=== PATIENT | female | born 1950 | race Caucasian/White ===

== ENCOUNTER 2016-09-18 13:41 | Inpatient (IN) | payer MEDICARE, OTHER ==
[~2016-09-18] VITALS: Ht 170.2 cm; Wt 124.0 kg
[2016-09-19] MEDS ORDERED: COQ-100C2 PO (09:43)
[2016-09-19] MEDS ORDERED: APIX5TAB PO (09:43)
[2016-09-19] MEDS ORDERED: COLLCAP PO (09:43)
[2016-09-19] MEDS ORDERED: MULT400T PO (09:43)
[2016-09-19] MEDS ORDERED: DIOV80TA2 PO (09:43)
[2016-09-19] MEDS ORDERED: BIOT50005 PO (09:43)
[2016-10-06] MEDS ORDERED: ceFAZolin INJ 1,000 MG VIAL ONE ×2 (06:38→08:19)
[2016-10-06] MEDS ORDERED: SODIUM CHLOR 0.9% 250 ML INJ 250 ML ONE (06:38)
[2016-10-06] MEDS ORDERED: DEXAMETHASONE SOD PHOS 20 MG/5 ML VIAL ONE (06:38)
[2016-10-06] MEDS ORDERED: SODIUM CHLORIDE 0.9% INJ 100 ML ONE ×2 (06:39→08:20)
[2016-10-06] MEDS ORDERED: VANCOMYCIN HCL 1000 MG VIAL ONE (06:39)
[2016-10-06 06:41] VITALS: BP 157/74; PULSE 57; RESP 18; TEMP 97.9; O2SAT 97
[2016-10-06] MEDS ORDERED: LACTATED RINGER'S 1000 ML IV SCH (06:45)
[2016-10-06] MEDS ORDERED: METOPROLOL TARTRATE 25 MG TAB PO PRN (06:45)
[2016-10-06] MEDS ORDERED: VANCOMYCIN 1000 MG/NS 250 ML (for <70 kg) IV SCH ×2 (06:45)
[2016-10-06] MEDS ORDERED: POVIDONE IODINE 7.5% SCRUB 118 ML BOTTLE TOP SCH (06:45)
[2016-10-06] MEDS ORDERED: ceFAZolin 2 GM PREMIX 50 ML IV SCH (06:45)
[2016-10-06] MEDS ORDERED: INSULIN HUMAN REGULAR 1,000 UNITS/10 ML VIAL SQ PRN (06:45)
[2016-10-06] MEDS ORDERED: SODIUM CHLORID 0.9% 500 ML IV SCH (06:45)
[2016-10-06] MEDS ORDERED: GENTAMICIN SULFATE 80 MG/2 ML VIAL ONE (06:53)
[2016-10-06] MEDS: CHLORHEXIDINE GLUCONATE 4% SOLN 120 ML BTL TOP SCH (06:54)
[2016-10-06] MEDS ORDERED: DEXAMETHASONE SOD PHOS 20 MG/5 ML VIAL IV SCH (07:00)
[2016-10-06] MEDS ORDERED: HYDR-3288 PO (07:08)
[2016-10-06] MEDS ORDERED: APIX2.5T PO (07:08)
[2016-10-06] MEDS ORDERED: MAGNESIUM HYDROXIDE SUSP 30 ML CUP PO PRN (07:15)
[2016-10-06] MEDS ORDERED: Post-op Orders (for Pharmacy) MISC XX ONE (07:15)
[2016-10-06] MEDS ORDERED: BISACODYL 10 MG SUPP PR PRN (07:15)
[2016-10-06] MEDS ORDERED: ONDANSETRON HCL 4 MG/2 ML VIAL IVP PRN (07:15)
[2016-10-06] MEDS ORDERED: NALOXONE HCL 0.4 MG/ML AMP IV PRN (07:15)
[2016-10-06] MEDS ORDERED: diphenhydrAMINE HCL 50 MG/ML VIAL IV PRN (07:15)
[2016-10-06] MEDS ORDERED: MORPHINE SULFATE 4 MG/ML INJ IV PUSH PRN (07:15)
[2016-10-06] MEDS ORDERED: ALUMINUM/MAGNESIUM/SIMETH 30 ML CUP PO PRN (07:15)
[2016-10-06] MEDS ORDERED: ZOLPIDEM TARTRATE 5 MG TAB PO PRN (07:15)
[2016-10-06] MEDS ORDERED: MIDAZOLAM HCL 2 MG/2 ML VIAL ONE ×3 (08:03→11:27)
[2016-10-06] MEDS ORDERED: FAMOTIDINE 20 MG/2 ML VIAL ONE (08:25)
[2016-10-06] MEDS ORDERED: TRANEXAMIC ACID IV SCH (08:30)
[2016-10-06] MEDS ORDERED: ROPIVACAINE PERI-ARTICULAR INJECTION. PERIART SCH ×5 (08:30)
[2016-10-06] MEDS ORDERED: EXPAREL PERI-ARTICULAR INJECTION (TOTAL VOL. 60 ML) P-ARTICULR SCH ×2 (08:30)
[2016-10-06] MEDS ORDERED: SODIUM CHLORIDE 0.9% IV SCH (08:30)
[2016-10-06] MEDS ORDERED: TRANEXAMIC PERI-ARTICULAR 3,000 MG/NS 100 ML P-ARTICULR SCH ×2 (08:30)
[2016-10-06] MEDS ORDERED: PILL SPLITTER OTHER PRN (08:45)
[2016-10-06] MEDS ORDERED: SODIUM CHLORIDE 0.9% FLUSH 10 ML FLUSH IV FLUSH PRN (08:45)
[2016-10-06] MEDS: DRONEDARONE 400 MG TAB PO SCH ×2 (09:00→18:37)
[2016-10-06] MEDS ORDERED: NON-FORMULARY DRUG (Valsartan-Hydrochlorothiazide (Diovan Hct) 1 TAB) PO SCH (09:00)
[2016-10-06] MEDS: VALSARTAN 80 MG TAB PO SCH (09:00)
[2016-10-06] MEDS: HYDROCHLOROTHIAZIDE 12.5 MG CAP PO SCH (09:00)
[2016-10-06] MEDS: ASCORBIC ACID 500 MG TAB PO SCH (09:00)
[2016-10-06] MEDS ORDERED: BUPIVACAINE HCL PF 0.5% 30 ML VIAL NERV BLOCK ONE (09:23)
[2016-10-06] MEDS ORDERED: DO NOT ADM ANY ANTICOAGULANT DRUGS XX PRN (11:09)
[2016-10-06] MEDS ORDERED: *MEPERIDINE 25 MG INJ VIAL PERIprocedural Use ONLY ONE (11:21)
[2016-10-06] MEDS: SODIUM CHLOR 0.9% 1000 ML INJ 1,000 ML IV SCH ×2 (11:51→19:00)
[2016-10-06] MEDS: SODIUM CHLORIDE 0.9% FLUSH 10 ML FLUSH IV FLUSH SCH ×2 (11:51→21:00)
[2016-10-06] MEDS ORDERED: PROPOFOL 200 MG/20 ML AMP IV ONE (12:00)
--- NOTE | 2016-10-06 12:08 | RADRPT ---
EXAM DATE/TIME: 10/06/2016 11:37 [facility] COMPARISON: No previous studies available for comparison. INDICATIONS : Post op left knee surgery. MEDICAL HISTORY : None. SURGICAL HISTORY : None. ENCOUNTER: Initial ACUITY: 1 day PAIN SCORE: 5/10 LOCATION: Left knee FINDINGS: AP and lateral views of the knee following arthroplasty reveals a prosthesis in anatomic alignment. F racture is not appreciated. Surgical drain is evident CONCLUSION: Status post total knee arthroplasty. Arthur Hilton MD FACR Board Certified Radiologist. This report was verified electronically.
[2016-10-06 12:38] VITALS: BP 121/65; PULSE 64; RESP 17; TEMP 95.7; O2SAT 97
--- NOTE | 2016-10-06 13:08 | PD.CONS ---
HPI Service [facility] Hospitalists Consult Requested By Dr. Hill Reason for Consult Medical management Primary Care Physician Garrick Laguerre M.D. Diagnoses: History of Present Illness This is a 66-year-old female with past medical history of atrial fibrillation, aortic stenosis, obesity, sleep apnea, osteoarthritis. Patient was admitted for elective surgery per Dr. Hill. Patient underwent a left total knee arthroplasty. Patient has a history of atrial fibrillation, she follows up regularly with Dr. Grijalva who cleared her for surgery. She is on Eliquis, which was stopped for surgery. Also endorses history of aortic stenosis which is stable. Her last echocardiogram was in May 2016. Patient denies any chest pain, shortness of breath, no palpitations. Patient is hemodynamically stable, pain is well controlled. Hospitalist services are requested for medical management. (Erna Serrano) Review of Systems Constitutional: DENIES: Diaphoretic episodes, Fatigue, Fever, Weight gain, Weight loss, Chills, Dizziness, Change in appetite, Night Sweats Endocrine: DENIES: Abnorml menstrual pattern, Heat/cold intolerance, Polydipsia , Polyuria, Polyphagia Eyes: DENIES: Blurred vision, Diplopia, Eye inflammation, Eye pain, Vision loss , Photosensitivity, Double Vision Ears, nose, mouth, throat: DENIES: Tinnitus, Hearing loss, Vertigo, Nasal discharge, Oral lesions, Throat pain, Hoarseness, Ear Pain, Running Nose, Epistaxis, Sinus Pain, Toothache, Odynophagia Respiratory: DENIES: Apneas, Cough, Snoring, Wheezing, Hemoptysis, Sputum production, Shortness of breath Cardiovascular: DENIES: Chest pain, Palpitations, Syncope, Dyspnea on Exertion , PND, Lower Extremity Edema, Orthopnea, Claudication Gastrointestinal: DENIES: Abdominal pain, Black stools, Bloody stools, Constipation, Diarrhea, Nausea, Vomiting, Difficulty Swallowing, Anorexia Genitourinary: DENIES: Abnormal vaginal bleeding, Dysmenorrhea, Dyspareunia, Sexual dysfunction, Urinary frequency, Urinary incontinence, Urgency, Hematuria , Dysuria, Nocturia, Vaginal discharge Musculoskeletal: COMPLAINS OF: Joint pain, DENIES: Muscle aches, Stiffness, Joint Swelling, Back pain, Neck pain Integumentary: DENIES: Abnormal pigmentation, Pruritus, Rash, Nail changes, Breast masses, Breast skin changes, Nipple discharge Hematologic/lymphatic: DENIES: Bruising, Lymphadenopathy Immunologic/allergic: DENIES: Eczema, Urticaria Neurologic: DENIES: Abnormal gait, Headache, Localized weakness, Paresthesias, Seizures, Speech Problems, Tremor, Poor Balance Psychiatric: DENIES: Anxiety, Confusion, Mood changes, Depression, Hallucinations, Agitation, Suicidal Ideation, Homicidal Ideation, Delusions ( Erna Serrano) Past Family Social History Past Medical History Hypertension Hyperlipidemia Sleep apnea Atrial fibrillation Past Surgical History Tonsillectomy Left knee surgery Cardiac catheterization May 08, 2016, was found with mild aortic stenosis, no CAD Reported Medications Reported Meds & Active Scripts Active [place] (Hydrocodone-Acetaminophen) 7.5-325 mg Tab 1-2 Tab PO Q6H PRN Eliquis (Apixaban) 2.5 Mg Tab 2.5 Mg PO BID PRN Reported Collagen Plus Vitamin C (Collagen-Vitamin C) 740-125 Mg Cap 1 Cap PO DAILY Coq-10 (Coenzyme Q10 (Ubidecarenone)) 100 Mg Cap 1 Cap PO DAILY Biotin 5,000 Mcg Cap 10,000 Mcg PO DAILY Diovan Hct (Valsartan-Hydrochlorothiazide) 80-12.5 Mg Tab 1 Tab PO DAILY Multaq (Dronedarone) 400 Mg Tab 400 Mg PO BID Eliquis (Apixaban) 5 Mg Tab 5 Mg PO BID (Erna Serrano) Allergies: Coded Allergies: No Known Allergies (Verified , 10/06/16) Active Ordered Medications Inpatient Medications Acetaminophen/ Hydrocodone Bitart ([place] 7.5-325 Mg) 2 tab Q4H PRN PO PAIN SCALE 5 TO 10; Start 10/06/16 at 07:15; Status UNV Al Hydrox/Mg Hydrox/Simethicone (Mag-Al Plus Susp Liq) 30 ml Q6H PRN PO INDIGESTION; Start 10/06/16 at 07:15 Apixaban (Eliquis) 2.5 mg BID PO ; Start 10/07/16 at 08:00; Status UNV Ascorbic Acid 125 mg 125 mg DAILY PO ; Start 10/06/16 at 09:00 Bisacodyl (Dulcolax Supp) 10 mg DAILY PRN [place] CONSTIPATION; Start 10/06/16 at 07 :15; Status UNV Bupivacaine Liposome 20 ml/ Sodium Chloride 60 ml @ 120 mls/hr ONCE P-ARTICULR Last administered on 10/06/16 09:22; Start 10/06/16 at 08:30; Stop 10/06/16 at 14:30 Cefazolin Sodium/ Dextrose 50 ml @ 100 mls/hr ANALYSIS EVALUATOR IV ; Start 10/06/16 at 06:45; Stop 10/07/16 at 06:44 Cefazolin Sodium/ Sodium Chloride (Ancef Inj/NS Inj) 100 ml @ 200 mls/hr Q6H IV ; Start 10/06/16 at 13:00; Stop 10/07/16 at 01:29 Chlorhexidine Gluconate 1 applic 1 applic ONCE TOP Last administered on 06:54; Start 10/06/16 at 06:45; Stop 10/09/16 at 06:44 Dexamethasone Sodium Phosphate 10 mg 10 mg ON ARRIVAL IV Last administered on 10/06/16 06:45; Start 10/06/16 at 07:00; Stop 10/07/16 at 06:59 Diphenhydramine HCl (Benadryl Inj) 25 mg Q6H PRN IV ITCHING; Start 10/06/16 at 07:15 Docusate Sodium (Colace) 100 mg BID PO ; Start 10/07/16 at 21:00 Dronedarone (Multaq) 400 mg BID@09,18 PO ; Start 10/06/16 at 09:00 Hydrochlorothiazide (Microzide) 12.5 mg DAILY PO ; Start 10/06/16 at 09:00 Insulin Human Regular (NovoLIN R INJ) See Protocol Table ... UNSCH X1 PRN SQ SEE PROTOCOL; Start 10/06/16 at 06:45; Stop 10/07/16 at 06:44 Lactated Ringer's 1,000 ml @ 30 mls/hr Q24H IV Last administered on 10/06/16 06:40; Start 10/06/16 at 06:45; Stop 10/06/16 at 08:48; Status DC Magnesium Hydroxide (Milk Of Magnesia Liq) 30 ml DAILY PRN PO CONSTIPATION; Start 10/06/16 at 07:15; Status UNV Metoprolol Tartrate (Lopressor) 25 mg UNSCH X1 PRN PO SEE LABEL COMMENTS; Start 10/06/16 at 06:45; Stop 10/07/16 at 06:44 Miscellaneous (Pill Splitter) 1 ea UNSCH PRN OTHER SEE LABEL COMMENTS; Start at 08:45 Miscellaneous Information ALL NURSING DEPARTME... UNSCH PRN XX SEE LABEL COMMENTS; Start 10/06/16 at 11:09; Stop 10/07/16 at 11:08 Miscellaneous Information (Post-op Orders (for Pharmacy)) STAT ONCE XX ; Start 10/06/16 at 07:15; Stop 10/06/16 at 08:39; Status DC Morphine Sulfate (Morphine Inj) 3 mg Q3H PRN IV PUSH Pain >7 when off PRODUCT DEVELOPER; Start 10/06/16 at 07:15; Status UNV Multivitamins/ Minerals Therapeutic (Theragran M Tab) 1 tab BID PO ; Start 10/07 at 21:00; Stop 12/06/16 at 20:59 Naloxone HCl (Narcan Inj) 0.4 mg UNSCH PRN IV RESPIRATORY RATE LESS THAN 10; Start 10/06/16 at 07:15 Ondansetron HCl (Zofran Inj) 4 mg Q6H PRN IVP NAUSEA OR VOMITING; Start at 07:15 Povidone Iodine (Betadine 7.5% Scrub) 1 applic ONCE TOP ; Start 10/06/16 at 06: 45; Stop 10/09/16 at 06:44 Ropivacaine/ Ketorolac Tromethamine/ Epinephrine HCl/ Clonidine/Sodium Chloride (Naropin 0.5% Pf Inj/Toradol Inj/ Adrenalin (1:1000) Inj/ Duraclon Inj/NS Inj) 100 ml @ 200 mls/hr ONCE PERIART ; Start 10/06/16 at 08:30; Stop 10/06/16 at 14 :30 Sodium Chloride (NS 1000 ml Inj) 1,000 ml @ 100 mls/hr Q10H IV Last administered on 10/06/16t 11:51; Start 10/06/16 at 09:00 Sodium Chloride (NS 500 ml Inj) 500 ml @ 30 mls/hr [id number] IV ; Start 10/06/16 at 06:45; Stop 10/06/16 at 08:48; Status DC Sodium Chloride (NS Flush) 2 ml UNSCH PRN IV FLUSH FLUSH AFTER USING IV ACCESS ; Start 10/06/16 at 08:45 Sodium Chloride 2 ml 2 ml BID IV FLUSH Last administered on 10/06/16 11:51; Start 10/06/16 at 09:00 Tranexamic Acid 1825 mg/Sodium Chloride 118.25 ml @ 200 mls/ hr ONCE IV Last administered on 10/06/16 08:55; Start 10/06/16 at 08:30; Stop 10/06/16 at 14:30 Tranexamic Acid/ Sodium Chloride (Cyklokapron Inj/ NS Inj) 130 ml @ 260 mls/hr ONCE P-ARTICULR Last administered on 10/06/16 09:22; Start 10/06/16 at 08:30; Stop 10/06/16 at 14:30 Valsartan (Diovan) 80 mg DAILY PO ; Start 10/06/16 at 09:00 Vancomycin HCl 1000 mg/Sodium Chloride 250 ml @ 250 mls/hr ANALYSIS EVALUATOR IV Last administered on 10/06/16 06:58; Start 10/06/16 at 06:45; Stop 10/07/16 at 06:44 Zolpidem Tartrate (Ambien) 5 mg HS PRN PO SLEEP; Start 10/06/16 at 07:15 Family History Renal disease Social History Denies tobacco or illicit drug use. Occasional alcohol use (Erna Serrano ) Physical Exam Vital Signs Vital Signs Date Time Temp Pulse Resp B/P Pulse Ox O2 Delivery O2 Flow Rate FiO2 10/06/16 12:38 95.7 64 17 121/65 97 10/06/16 12:15 65 14 159/73 96 Nasal Cannula 2 10/06/16 12:00 97.4 63 14 159/73 96 Nasal Cannula 3 10/06/16 11:55 97.4 10/06/16 11:45 69 12 155/72 95 Nasal Cannula 3 10/06/16 11:30 61 13 174/82 95 Nasal Cannula 3 10/06/16 11:15 96.0 10/06/16 11:13 96.0 92 15 173/73 89 Nasal Cannula 3 10/06/16 06:41 97.9 57 18 157/74 97 Physical Exam GENERAL: This is a well-nourished, well-developed patient, in no apparent distress. SKIN: No rashes, ecchymoses or lesions. Cool and dry. HEAD: Atraumatic. Normocephalic. No temporal or scalp tenderness. EYES: Pupils equal round and reactive. Extraocular motions intact. No scleral icterus. No injection or drainage. ENT: Nose without bleeding, purulent drainage or septal hematoma. Throat without erythema, tonsillar hypertrophy or exudate. Uvula midline. Airway patent. NECK: Trachea midline. No JVD or lymphadenopathy. Supple, nontender, no meningeal signs. CARDIOVASCULAR: Regular rate and rhythm with murmur 2-3/6. No rubs, no gallops. RESPIRATORY: Clear to auscultation. Breath sounds equal bilaterally. No wheezes , rales, or rhonchi. GASTROINTESTINAL: Abdomen soft, non-tender, nondistended. No hepato-splenomegaly , or palpable masses. No guarding. MUSCULOSKELETAL: Extremities without clubbing, cyanosis. Bilat feet with trace edema, +2 pedal pulses. Left knee with bulky dressing, D/I, intact sensation, able to dorsiflex foot. No other joint tenderness, effusion, or edema noted. No calf tenderness. Negative Homans sign bilaterally. NEUROLOGICAL: Awake and alert. Cranial nerves II through XII intact. Motor and sensory grossly within normal limits. Five out of 5 muscle strength in all muscle groups. Normal speech. Laboratory Laboratory Tests Test 10/06/16 06:35 Blood Type B POSITIVE Antibody Screen NEGATIVE Blood Bank Comment (Erna Serrano) A/P Diagnosis: (1) S/P total knee arthroplasty (2) Hypertension (3) Atrial fibrillation with RVR (4) Aortic stenosis (5) Sleep apnea (6) OA (osteoarthritis) Assessment and Plan Thank you for this consultation, we will assist with medical management 66-year-old female, history of OA, obesity, has failed non operative management. Status post left total knee arthroplasty 10/06 -Continue with postop ortho care -Eliquis will be continued for DVT prophylaxis -Pain management -Physical therapy -Wound care -Bowel regimen Aortic stenosis, denies any chest pain, shortness of breath. Stable. 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 Continue with home medications History of A. fib, paroxysmal. Stable. Continuous telemetry monitoring -Continue with multaq -continue Eliquis Sleep apnea stable Continue use equipment from home Hypertension, stable Continue with home medications Continue with Eliquis for DVT prophylaxis Labs in the morning Plan of care has been discussed with the patient, attending and registered nurse. Further management of the patient will be dependent on the hospital course This patient was seen by myself and Dr. Yousif, this H&P is written on his behalf (Erna Serrano) Assessment and Plan evaluation done as above paln of chandu fernandez in detail agree with above (Celia Yousif MD) Problem Qualifiers (1) S/P total knee arthroplasty: Qualified Code: Z96.652 - Status post total left knee replacement (2) Hypertension: Qualified Code: I10 - Essential hypertension (3) Aortic stenosis: Qualified Code: I35.0 - Nonrheumatic aortic valve stenosis (4) Sleep apnea: Qualified Code: G47.30 - Sleep apnea, unspecified type (5) OA (osteoarthritis): Qualified Code: M19.90 - Osteoarthritis, unspecified osteoarthritis type, unspecified site Erna Serrano Oct 06, 2016 13:08 Celia Yousif MD Oct 09, 2016 22:19
[2016-10-06 15:00] VITALS: BP 140/63; PULSE 64; RESP 18; TEMP 96.5; O2SAT 99
[2016-10-06 20:00] VITALS: BP 100/53; PULSE 54; RESP 17; TEMP 95.4; O2SAT 94
[2016-10-06 22:17] VITALS: PULSE 66
[2016-10-07] VITALS (8 sets, daily range): BP systolic 97–128; BP diastolic 49–58; PULSE 49–62; RESP 14–18; TEMP 96–97.7; O2SAT 95–100
[2016-10-07] MEDS: CHLORHEXIDINE GLUCONATE 4% SOLN 120 ML BTL TOP SCH (00:33)
[2016-10-07] MEDS: SODIUM CHLOR 0.9% 1000 ML INJ 1,000 ML IV SCH ×2 (05:00→15:00)
[2016-10-07 06:18] LABS: HEMATOCRIT 29.1 % (35.0-46.0); MEAN CELL VOLUME 94.6 FL (80.0-100.0); MEAN CORPUSCULAR HGB CONC 33.9 % (32.0-36.0); PLATELET COUNT 153 TH/MM3 (150-450); RED BLOOD COUNT 3.07 MIL/MM3 (4.00-5.30); RED CELL DISTRIBUTION WIDTH 13.1 % (11.6-17.2); REVIEW FLAG FINAL; WHITE BLOOD COUNT 13.7 TH/MM3 (4.0-11.0)
[2016-10-07 06:46] LABS: BICARBONATE 23.4 MEQ/L (21.0-32.0); POTASSIUM 3.7 MEQ/L (3.5-5.1)
--- NOTE | 2016-10-07 08:20 | PD.ORT.PN ---
Subjective Post Op Day #: 1 Subjective Remarks pain tolerable Objective Vitals Vital Signs Date Time Temp Pulse Resp B/P Pulse Ox O2 Delivery O2 Flow Rate FiO2 10/07/16 04:00 97.5 61 16 105/58 97 10/07/16 00:00 97.7 60 17 108/56 96 10/06/16 22:17 66 10/06/16 20:00 95.4 54 17 100/53 94 10/06/16 15:00 96.5 64 18 140/63 99 10/06/16 12:38 95.7 64 17 121/65 97 10/06/16 12:15 65 14 159/73 96 Nasal Cannula 2 10/06/16 12:00 97.4 63 14 159/73 96 Nasal Cannula 3 10/06/16 11:55 97.4 10/06/16 11:45 69 12 155/72 95 Nasal Cannula 3 10/06/16 11:30 61 13 174/82 95 Nasal Cannula 3 10/06/16 11:15 96.0 10/06/16 11:13 96.0 92 15 173/73 89 Nasal Cannula 3 I/O 10/06/16 10/06/16 10/06/16 10/07/16 10/07/16 10/07/16 07:00 15:00 23:00 07:00 15:00 23:00 Intake Total 2480 ml 240 ml 720 ml Output Total 1750 ml 200 ml 1050 ml Balance 730 ml 40 ml -330 ml Intake Oral 480 ml 240 ml 720 ml Other 2000 ml Output Urine Total 650 ml 200 ml 1050 ml Estimated Blood Loss 100 ml Other 1000 ml # Voids 0 # Bowel Movements 0 0 Result Diagram: 10/07/16 0541 10/07/16 0541 Objective Remarks in bed, nad dressing c/d/i neg homans nvi Assessment & Plan Ortho Post Op Day #: 1 Problem List: Assessment and Plan s/p L TKA wbat daily dressing changes Eliquis d/c planning to snf [id number] signed rx in chart f/up dr. peoples 2 weeks Sesar Mckeon Oct 07, 2016 08:20
--- NOTE | 2016-10-07 08:21 | HHI.DCPOC ---
Discharge Care Plan Diagnosis: (1) Primary localized osteoarthrosis, lower leg Your Health Problems Are: Difficulty with ADL Goals to Promote Your Health * To prevent worsening of your condition and complications * To maintain your health at the optimal level Directions to Meet Your Goals Take your medications as prescribed Follow your dietary instruction Follow activity as directed Keep your appointments as scheduled Take your immunizations and boosters as scheduled If your symptoms worsen call your PCP, if no PCP go to Urgent Care Center or Emergency Room Smoking is Dangerous to Your Health. Avoid second hand smoke Call the 24-hour hour crisis hotline for domestic abuse at Sesar Mckeon Oct 07, 2016 08:21
[2016-10-07] MEDS ORDERED: COMMODE 3-IN-11 MIS (08:22)
[2016-10-07] MEDS ORDERED: WALKER WHEELS/F1 MIS (08:22)
[2016-10-07] MEDS ORDERED: CPMMACHINE (08:22)
[2016-10-07] MEDS: VALSARTAN 80 MG TAB PO SCH ×2 (09:00→11:21)
[2016-10-07] MEDS: SODIUM CHLORIDE 0.9% FLUSH 10 ML FLUSH IV FLUSH SCH ×2 (09:00→20:12)
[2016-10-07] MEDS: HYDROCHLOROTHIAZIDE 12.5 MG CAP PO SCH ×2 (09:00→11:20)
[2016-10-07] MEDS: DRONEDARONE 400 MG TAB PO SCH ×3 (09:00→18:01)
[2016-10-07] MEDS: APIXABAN 2.5 MG TABLET PO SCH ×2 (11:20→23:31)
[2016-10-07] MEDS: ASCORBIC ACID 500 MG TAB PO SCH (11:21)
[2016-10-07] MEDS: ACETAMINOPHEN/HYDROcodone 325 MG/7.5 MG TAB PO PRN ×3 (12:48→23:32)
--- NOTE | 2016-10-07 12:53 | HHI.PR ---
Subjective Subjective Remarks dizzy when out of bed today BP dropped to 90s, she was having BM at that time better now no cp no sob tele reviewed, SR/SB, no afib eating ok starting to feel more left knee pain Review of Systems Constitutional Constitutional Remarks 12 point ROS completed, negative except as noted above Vitals/Results Intake & Output 10/06/16 10/06/16 10/07/16 15:00 23:00 07:00 Intake Total 2480 ml 240 ml 720 ml Output Total 1750 ml 200 ml 1050 ml Balance 730 ml 40 ml -330 ml Intake Oral 480 ml 240 ml 720 ml Other 2000 ml Output Urine Total 650 ml 200 ml 1050 ml Estimated Blood Loss 100 ml Other 1000 ml # Voids 0 # Bowel Movements 0 0 Vital Signs Vital Signs Date Time Temp Pulse Resp B/P Pulse Ox O2 Delivery O2 Flow Rate FiO2 10/07/16 08:00 96.6 49 14 97/49 95 10/07/16 04:00 97.5 61 16 105/58 97 10/07/16 00:00 97.7 60 17 108/56 96 10/06/16 22:17 66 10/06/16 20:00 95.4 54 17 100/53 94 10/06/16 15:00 96.5 64 18 140/63 99 CBC/BMP: 10/07/16 0541 10/07/16 0541 Lab Results Laboratory Tests Test 10/07/16 05:41 White Blood Count 13.7 TH/MM3 Red Blood Count 3.07 MIL/MM3 Hemoglobin 9.9 GM/DL Hematocrit 29.1 % Mean Corpuscular Volume 94.6 FL Mean Corpuscular Hemoglobin 32.0 PG Mean Corpuscular Hemoglobin 33.9 % Concent Red Cell Distribution Width 13.1 % Platelet Count 153 TH/MM3 Mean Platelet Volume 9.2 FL Sodium Level 141 MEQ/L Potassium Level 3.7 MEQ/L Chloride Level 108 MEQ/L Carbon Dioxide Level 23.4 MEQ/L Anion Gap 10 MEQ/L Blood Urea Nitrogen 15 MG/DL Creatinine 0.99 MG/DL Estimat Glomerular Filtration 56 ML/MIN Rate Random Glucose 140 MG/DL Calcium Level 8.1 MG/DL Physical Exam General General Appearance: Well Developed, No Acute Distress, Comfortable, Obese Eyes Eye Exam: Pupils Equal, Pupils Reactive Ears & Nose Ears & Nose Exam: Nasal Mucosa [place] Throat Throat Exam: Oral Mucosa [place] & Moist Neck Neck Exam: Neck Supple, Trachea Midline Pulmonary Resp Exam: Clear Bilaterally Cardiology CV Exam: Regular, Good Perfusion, Murmur Gastrointestinal/Abdomen GI Exam: Soft, Non-Tender, Bowel Sounds Present, Positive Bowel Movement, Non- Distended Musculoskeletal MS Exam: Joints Intact MS Remarks Left knee/leg with dressing D/I Integumentary Skin Exam: Warm, Dry Extremeties Extremities Exam: Pedal Pulses Palpable, Trace Edema Neurologic Neuro Exam: Alert, Awake, Oriented, Speech Clear, Moving All Extremities, No Focal Deficits Psychiatric Psych Exam: Appropriate Responses VTE Prophylaxis VTE Prophylaxis Device: TEDs VTE Prophylaxis Meds: Heparin VTE Remarks Eliquis Assessment/Plan Problem List: (1) S/P total knee arthroplasty (2) OA (osteoarthritis) (3) Atrial fibrillation with RVR (4) Sleep apnea (5) Hypertension (6) Aortic stenosis Assessment/Plan 66-year-old female, history of OA, obesity, has failed non operative management. Status post left total knee arthroplasty 10/06 -Continue with postop ortho care - Continue Eliquis for DVT prophylaxis -Pain management -Physical therapy -Wound care -Bowel regimen Aortic stenosis, denies any chest pain, shortness of breath. Stable. 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 Continue with home medications Hypotensive, dizzy, ? vasovagal. HR 50s. Was having BM -BP meds held -IVF -Better now, monitor closely History of A. fib, paroxysmal. Stable. Continuous telemetry monitoring -Continue with multaq-hold if HR < 50s -continue Eliquis Sleep apnea stable Continue use equipment from home Hypertension, was actually hypotensive. -Continue IVF -Hold HCTZ and Diovan when BP < 110 Continue with Eliquis for DVT prophylaxis, pt. only on 2.5 mg po bid, will have RN ask Dr. Hill if she can go on full dose. HH stable Labs in the morning D/W RN D/W Dr. Yousif D/W pt. This patient was seen by myself and Dr. Yousif, this note is written on his behalf Problem Qualifiers (1) S/P total knee arthroplasty: Qualified Code: Z96.652 - Status post total left knee replacement (2) OA (osteoarthritis): Qualified Code: M19.90 - Osteoarthritis, unspecified osteoarthritis type, unspecified site (3) Sleep apnea: Qualified Code: G47.30 - Sleep apnea, unspecified type (4) Hypertension: Qualified Code: I10 - Essential hypertension (5) Aortic stenosis: Qualified Code: I35.0 - Nonrheumatic aortic valve stenosis Erna Serrano REAL ESTATE AGENT Oct 07, 2016 12:53
[2016-10-07] MEDS: MULTIVITAMINS/MINERALS THERAPEUTIC TAB PO SCH (20:12)
[2016-10-07] MEDS: DOCUSATE SODIUM 100 MG CAP PO SCH (20:12)
[2016-10-08] VITALS (7 sets, daily range): BP systolic 106–136; BP diastolic 41–63; PULSE 68–75; RESP 15–20; TEMP 96.8–97.9; O2SAT 95–99
[2016-10-08] MEDS: SODIUM CHLOR 0.9% 1000 ML INJ 1,000 ML IV SCH ×4 (01:00→20:21)
[2016-10-08] MEDS: ACETAMINOPHEN/HYDROcodone 325 MG/7.5 MG TAB PO PRN ×3 (03:58→15:14)
[2016-10-08 06:13] LABS: HEMATOCRIT 26.5 % (35.0-46.0); MEAN CELL VOLUME 94.8 FL (80.0-100.0); MEAN CORPUSCULAR HEMOGLOBIN 33.7 PG (27.0-34.0); MEAN CORPUSCULAR HGB CONC 35.5 % (32.0-36.0); PLATELET COUNT 146 TH/MM3 (150-450); RED BLOOD COUNT 2.79 MIL/MM3 (4.00-5.30); RED CELL DISTRIBUTION WIDTH 13.2 % (11.6-17.2); REVIEW FLAG FINAL; WHITE BLOOD COUNT 8.1 TH/MM3 (4.0-11.0)
[2016-10-08 06:19] LABS: BICARBONATE 25.3 MEQ/L (21.0-32.0); POTASSIUM 3.6 MEQ/L (3.5-5.1)
[2016-10-08] MEDS: CHLORHEXIDINE GLUCONATE 4% SOLN 120 ML BTL TOP SCH (06:45)
--- NOTE | 2016-10-08 08:13 | PD.ORT.PN ---
Subjective Post Op Day #: 2 Subjective Remarks pain tolerable. has not done too much with PT as of yet. Objective Vitals Vital Signs Date Time Temp Pulse Resp B/P Pulse Ox O2 Delivery O2 Flow Rate FiO2 10/08/16 04:00 97.2 73 20 132/63 97 10/08/16 00:00 97.4 70 20 136/56 99 10/07/16 22:23 98 21 10/07/16 19:51 57 10/07/16 19:43 97.2 62 18 128/56 99 10/07/16 16:00 96.0 56 17 115/56 100 10/07/16 12:00 96.1 56 16 118/56 96 I/O 10/07/16 10/07/16 10/07/16 10/08/16 10/08/16 10/08/16 07:00 15:00 23:00 07:00 15:00 23:00 Intake Total 720 ml 360 ml 280 ml 120 ml Output Total 1050 ml Balance -330 ml 360 ml 280 ml 120 ml Intake Oral 720 ml 360 ml 280 ml 120 ml Output Urine Total 1050 ml # Voids 2 2 1 # Bowel Movements 2 0 0 Result Diagram: 10/08/16 0510/08/16 0523 Objective Remarks in bed, nad incision no erythema, no drainage neg homans nvi Assessment & Plan Ortho Post Op Day #: 2 Problem List: Assessment and Plan s/p L TKA wbat daily dressing changes Eliquis 2.5mg BID OOB and IS d/c planning to snf 3008 signed rx in chart f/up dr. peoples 2 weeks Sesar Mckeon Oct 08, 2016 08:13
[2016-10-08] MEDS: SODIUM CHLORIDE 0.9% FLUSH 10 ML FLUSH IV FLUSH SCH ×2 (09:00→20:21)
[2016-10-08] MEDS: VALSARTAN 80 MG TAB PO SCH (09:35)
[2016-10-08] MEDS: HYDROCHLOROTHIAZIDE 12.5 MG CAP PO SCH (09:35)
[2016-10-08] MEDS: DRONEDARONE 400 MG TAB PO SCH ×2 (09:36→17:17)
[2016-10-08] MEDS: ASCORBIC ACID 500 MG TAB PO SCH (09:36)
[2016-10-08] MEDS: MULTIVITAMINS/MINERALS THERAPEUTIC TAB PO SCH ×2 (09:36→20:20)
[2016-10-08] MEDS: DOCUSATE SODIUM 100 MG CAP PO SCH ×2 (09:36→20:20)
--- NOTE | 2016-10-08 09:59 | MP ---
cc: CLARENCE SAAVEDRA M.D. DATE OF SURGERY 10/06/2016 PREOPERATIVE DIAGNOSIS Left knee osteoarthritis POSTOPERATIVE DIAGNOSES Left knee osteoarthritis PROCEDURE Left total knee arthroplasty SURGEON Dr. Clarence Saavedra PAINT TINTER JULIO Clarke ANESTHESIA Spinal with a femoral nerve block. ESTIMATED BLOOD LOSS 50 cc COMPLICATIONS None TOURNIQUET TIME 59 minutes at 300 mmHg IMPLANTS USED DePuy attune size 8 posterior stabilized femoral components, size 7 rotating platform, tibia baseplate, size 5 mm tibial insert, size 35 mm patella. JUSTIFICATION This patient is a 66-year female with a history of severe end-stage osteoarthritis involving the left knee. She has severe disabling pain with standing, walking, ambulation and weight-bearing activities and even severe pain at rest. She has failed greater than three months of nonoperative conservative treatment to include medication therapy, injections, ambulatory assisted aids, home exercise program, activity modification, weight loss attempts. X-rays of the left knee reveal severe end-stage osteoarthritis with [id number] joint space narrowing, subchondral sclerosis, subchondral cyst osteophyte formation and valgus deformity. The patient was counseled as to the risks, benefits and alternatives to a total knee arthroplasty. The risks were discussed which include, but are not limited to infection, damage to nerves, blood vessels, pain, stiffness, blood clots, pulmonary embolism, and even . The patient's pain is severe. She understands the risks and did wished to proceed with surgery. A detailed written consent was obtained. PROCEDURE NOTE The patient was identified, taken to the operating room, placed supine on the operating room table. Spinal anesthesia was administered, as well as two grams of IV Ancef and one gram of IV vancomycin. A well-padded tourniquet was placed on the left thigh. The left lower extremity prepped and draped using Isopropyl alcohol, Hibiclens solution and Chloraprep solution. An Esmarch bandage used to exsanguinate the left lower extremity and tourniquet inflated to 300 mmHg. A longitudinal incision made over the anterior aspect of the left knee. A medial parapatellar arthrotomy incision was performed. The patella was everted. A patellar resection guide was used to resect 9 mm of patella. A size 35 mm guide was placed. Three drill holes were placed. A 35 mm trial fit well. Attention was turned to the femur where an intramedullary guide gypsy was placed. The distal femoral guide was set to remove 11 mm of distal femur, 5 degrees off the anatomic valgus axis alignment. The patient did have a hypoplastic lateral femoral condyle. An oscillating saw was used to perform distal femoral cut. Attention was turned to the tibia where an extramedullary tibial guide was used to remove 5 mm off the lowest portion of medial tibial plateau. The tibia guide was put in place and tibial cut was performed. A 5-mm spacer block showed full extension and attention was turned back to the femur where the AP sizer block measured a size eight. The anterior reference three degree external rotation guide was used to pin a size [address]. Anterior, posterior and chamfer cuts were performed. A has eight PCL box guide was pinned in place. The PCL box was cut with an oscillating saw. The medial and lateral meniscus remnants were removed, as well as bone and soft tissue debris from the posterior portion of the knee. A size seven tibia base was pinned in place. The tibia was drilled and punched. Trial components were evaluated and final components cemented in place. With the size five polyethylene tibial insert, the leg could achieve full extension to 0 degrees and flexion to 140. No evidence of tibial lift-off. The patient was noted to have slight laxity to valgus stress as related to chronic valgus deformity and elongation of the medial collateral ligament, but no significant instability. Of note at full extension, there was no varus-valgus instability at all. There is mild lateral patellar tracking and a partial lateral release was performed which allowed for central patellar tracking. With his tourniquet deflated, Bovie cautery was used for hemostasis. The knee was thoroughly irrigated with sterile saline pulse lavage antibiotic impregnated solution. FloSeal was added to the wound to assist with further hemostasis. The arthrotomy incision was closed with #1 Vicryl suture. The subcutaneous tissue closed 2-0 Vicryl suture. Skin was closed with jason. A sterile dressing was applied. The patient tolerated the procedure well with no intraoperative complications noted. Remi Mckeon, physician server service assistant was present during the entire procedure to include patient positioning and the procedure itself. The medical necessity of a physician server service assistant was indicated in this case due to the complexity of the procedure. He assisted with appropriate manipulation of the leg and also traction of muscle, tendon, bone and neurovascular structures. He assisted with both resection of bone and implantation of the prosthetic replacement. MD MANOJ Sams/CARMINA /10:53 AM /9:40 AM
[2016-10-08] MEDS: APIXABAN 2.5 MG TABLET PO SCH ×2 (10:46→21:45)
--- NOTE | 2016-10-08 13:48 | HHI.PR ---
Subjective Subjective Remarks no dizziness today bp stable some nausea when out of bed no palpitations no cp no fever no bm today Review of Systems Constitutional Constitutional Remarks 12 point ROS completed, negative except as noted above Vitals/Results Intake & Output 10/07/16 10/07/16 10/08/16 15:00 23:00 07:00 Intake Total 360 ml 280 ml 120 ml Balance 360 ml 280 ml 120 ml Intake Oral 360 ml 280 ml 120 ml # Voids 2 2 1 # Bowel Movements 2 0 0 Vital Signs Vital Signs Date Time Temp Pulse Resp B/P Pulse Ox O2 Delivery O2 Flow Rate FiO2 10/08/16 12:40 96.8 70 16 125/54 99 10/08/16 09:00 97.7 71 16 131/60 95 10/08/16 04:00 97.2 73 20 132/63 97 10/08/16 00:00 97.4 70 20 136/56 99 10/07/16 22:23 98 21 10/07/16 19:51 57 10/07/16 19:43 97.2 62 18 128/56 99 10/07/16 16:00 96.0 56 17 115/56 100 CBC/BMP: 10/08/16 0523 10/08/16 0523 Lab Results Laboratory Tests Test 10/08/16 05:23 White Blood Count 8.1 TH/MM3 Red Blood Count 2.79 MIL/MM3 Hemoglobin 9.4 GM/DL Hematocrit 26.5 % Mean Corpuscular Volume 94.8 FL Mean Corpuscular Hemoglobin 33.7 PG Mean Corpuscular Hemoglobin 35.5 % Concent Red Cell Distribution Width 13.2 % Platelet Count 146 TH/MM3 Mean Platelet Volume 9.3 FL Sodium Level 140 MEQ/L Potassium Level 3.6 MEQ/L Chloride Level 107 MEQ/L Carbon Dioxide Level 25.3 MEQ/L Anion Gap 8 MEQ/L Blood Urea Nitrogen 18 MG/DL Creatinine 0.91 MG/DL Estimat Glomerular Filtration 61 ML/MIN Rate Random Glucose 125 MG/DL Calcium Level 8.2 MG/DL Physical Exam General General Appearance: Well Developed, No Acute Distress, Comfortable, Obese Eyes Eye Exam: Pupils Equal, Pupils Reactive Ears & Nose Ears & Nose Exam: Nasal Mucosa [place] Throat Throat Exam: Oral Mucosa [place] & Moist Neck Neck Exam: Neck Supple, Trachea Midline Pulmonary Resp Exam: Clear Bilaterally Cardiology CV Exam: Regular, Good Perfusion, Murmur Gastrointestinal/Abdomen GI Exam: Soft, Non-Tender, Bowel Sounds Present, Positive Bowel Movement, Non- Distended Musculoskeletal MS Exam: Joints Intact MS Remarks Left knee/leg with dressing D/I Integumentary Skin Exam: Warm, Dry Extremeties Extremities Exam: Pedal Pulses Palpable, Trace Edema Neurologic Neuro Exam: Alert, Awake, Oriented, Speech Clear, Moving All Extremities, No Focal Deficits Psychiatric Psych Exam: Appropriate Responses VTE Prophylaxis VTE Prophylaxis Device: TEDs VTE Prophylaxis Meds: Heparin VTE Remarks Eliquis Assessment/Plan Problem List: (1) S/P total knee arthroplasty (2) OA (osteoarthritis) (3) Atrial fibrillation with RVR (4) Sleep apnea (5) Hypertension (6) Aortic stenosis Assessment/Plan 66-year-old female, history of OA, obesity, has failed non operative management. Status post left total knee arthroplasty 10/06 -Continue with postop ortho care - Continue Eliquis for DVT prophylaxis -Pain management -Physical therapy -Wound care -Bowel regimen Aortic stenosis, denies any chest pain, shortness of breath. Stable. Had echocardiogram at [facility] office in May 2016. Continue with home medications Hypotensive, dizzy, ? vasovagal. HR 50s. Was having BM -BP better, continue home meds History of A. fib, paroxysmal. Stable. Continuous telemetry monitoring -Continue with multaq-hold if HR < 50s -continue Eliquis Sleep apnea stable Continue use equipment from home Hypertension, was actually hypotensive. -Continue IVF -Hold HCTZ and Diovan when BP < 110 Continue with Eliquis for DVT prophylaxis x 2 weeks per ortho orders, then resume at full dose HH stable going to rehab tomorrow D/W RN D/W Dr. oYusif D/W pt. This patient was seen by myself and Dr. Yousif, this note is written on his behalf Problem Qualifiers (1) S/P total knee arthroplasty: Qualified Code: Z96.652 - Status post total left knee replacement (2) OA (osteoarthritis): Qualified Code: M19.90 - Osteoarthritis, unspecified osteoarthritis type, unspecified site (3) Sleep apnea: Qualified Code: G47.30 - Sleep apnea, unspecified type (4) Hypertension: Qualified Code: I10 - Essential hypertension (5) Aortic stenosis: Qualified Code: I35.0 - Nonrheumatic aortic valve stenosis Erna Serrano Oct 08, 2016 13:48
[2016-10-09] VITALS: BP 135/51; PULSE 71; RESP 20; TEMP 98.3; O2SAT 97
[2016-10-09 04:00] VITALS: BP 136/59; PULSE 70; RESP 20; TEMP 97.4; O2SAT 97
[2016-10-09] MEDS: ACETAMINOPHEN/HYDROcodone 325 MG/7.5 MG TAB PO PRN ×3 (04:12→14:13)
[2016-10-09 06:46] LABS: HEMATOCRIT 26.6 % (35.0-46.0); MEAN CELL VOLUME 94.8 FL (80.0-100.0); MEAN CORPUSCULAR HEMOGLOBIN 32.3 PG (27.0-34.0); MEAN CORPUSCULAR HGB CONC 34.1 % (32.0-36.0); PLATELET COUNT 150 TH/MM3 (150-450); RED CELL DISTRIBUTION WIDTH 13.1 % (11.6-17.2); REVIEW FLAG FINAL
[2016-10-09 07:21] LABS: BICARBONATE 28.6 MEQ/L (21.0-32.0); POTASSIUM 3.7 MEQ/L (3.5-5.1)
--- NOTE | 2016-10-09 07:53 | PD.ORT.PN ---
Subjective Post Op Day #: 3 Subjective Remarks pain tolerable. doing better this am. ready to go to snf. Objective Vitals Vital Signs Date Time Temp Pulse Resp B/P Pulse Ox O2 Delivery O2 Flow Rate FiO2 10/09/16 04:00 97.4 70 20 136/59 97 10/09/16 00:00 98.3 71 20 135/51 97 10/08/16 20:24 97.5 72 15 106/45 96 10/08/16 20:19 75 10/08/16 15:56 97.9 68 16 110/41 97 10/08/16 12:40 96.8 70 16 125/54 99 10/08/16 09:00 97.7 71 16 131/60 95 I/O 10/08/16 10/08/16 10/08/16 10/09/16 10/09/16 10/09/16 07:00 15:00 23:00 07:00 15:00 23:00 Intake Total 120 ml 480 ml 480 ml 220 ml Balance 120 ml 480 ml 480 ml 220 ml Intake Oral 120 ml 480 ml 480 ml 220 ml # Voids 1 3 4 2 # Bowel Movements 0 0 0 0 Result Diagram: 10/09/16 0601 10/09/16 0601 Objective Remarks in bed, nad dressing c/d/i neg homans nvi Assessment & Plan Ortho Post Op Day #: 3 Problem List: Assessment and Plan s/p L TKA wbat daily dressing changes Eliquis 2.5mg BID OOB and IS d/c planning to snf - cleared for today [id number] signed rx in chart f/up dr. peoples 2 weeks Sesar Mckeon Oct 09, 2016 07:53
[2016-10-09 08:00] VITALS: BP 138/55; PULSE 69; RESP 18; TEMP 97; O2SAT 95
[2016-10-09] MEDS: HYDROCHLOROTHIAZIDE 12.5 MG CAP PO SCH (09:00)
[2016-10-09] MEDS: ASCORBIC ACID 500 MG TAB PO SCH (09:26)
[2016-10-09] MEDS: DOCUSATE SODIUM 100 MG CAP PO SCH (09:26)
[2016-10-09] MEDS: MULTIVITAMINS/MINERALS THERAPEUTIC TAB PO SCH (09:26)
[2016-10-09] MEDS: SODIUM CHLORIDE 0.9% FLUSH 10 ML FLUSH IV FLUSH SCH (09:27)
[2016-10-09] MEDS: VALSARTAN 80 MG TAB PO SCH (09:27)
[2016-10-09] MEDS: DRONEDARONE 400 MG TAB PO SCH (09:27)
[2016-10-09 09:57] VITALS: O2SAT 96
[2016-10-09] MEDS: APIXABAN 2.5 MG TABLET PO SCH (11:23)
[2016-10-09 12:00] VITALS: BP 119/50; PULSE 67; RESP 18; TEMP 97.8; O2SAT 97
[2016-10-09] MEDS ORDERED: LACTATED RINGER'S 1000 ML INJ 2,000 ML IV ONE (12:00)
--- NOTE | 2016-10-09 13:40 | HHI.PR ---
Subjective Subjective Remarks Resting in bed with CPM on Alert Denies any shortness of breath or pain Appetite fair/ improving Debility generalized Obese Review of Systems Constitutional Constitutional: Weakness (generalized patient is status post left total knee arthroplasty,) GI/Abdomen GI/Abdominal Exam: Constipation (2 days, patient taken M OM today as well as stool softeners, will monitor, other systems negative or unremarkable) GI/Abdomen Remarks Obesity Musculoskeletal MS: Weakness, Stiffness, Swelling (mild left knee) Integumentary Skin: Wounds (healing without erythema or edema left knee, wrapped with Galo bandage) Psychiatric Psychiatric: Normal Mood Vitals/Results Intake & Output 10/08/16 10/08/16 10/09/16 15:00 23:00 07:00 Intake Total 480 ml 480 ml 220 ml Balance 480 ml 480 ml 220 ml Intake Oral 480 ml 480 ml 220 ml # Voids 3 4 2 # Bowel Movements 0 0 0 Vital Signs Vital Signs Date Time Temp Pulse Resp B/P Pulse Ox O2 Delivery O2 Flow Rate FiO2 10/09/16 12:00 97.8 67 18 119/50 97 10/09/16 09:57 96 21 10/09/16 08:00 97.0 69 18 138/55 95 10/09/16 04:00 97.4 70 20 136/59 97 10/09/16 00:00 98.3 71 20 135/51 97 10/08/16 20:24 97.5 72 15 106/45 96 10/08/16 20:19 75 10/08/16 15:56 97.9 68 16 110/41 97 CBC/BMP: 10/09/16 0601 10/09/16 0601 Lab Results Laboratory Tests Test 10/09/16 06:01 White Blood Count 8.0 TH/MM3 Red Blood Count 2.80 MIL/MM3 Hemoglobin 9.1 GM/DL Hematocrit 26.6 % Mean Corpuscular Volume 94.8 FL Mean Corpuscular Hemoglobin 32.3 PG Mean Corpuscular Hemoglobin 34.1 % Concent Red Cell Distribution Width 13.1 % Platelet Count 150 TH/MM3 Mean Platelet Volume 9.2 FL Sodium Level 140 MEQ/L Potassium Level 3.7 MEQ/L Chloride Level 105 MEQ/L Carbon Dioxide Level 28.6 MEQ/L Anion Gap 6 MEQ/L Blood Urea Nitrogen 11 MG/DL Creatinine 0.85 MG/DL Estimat Glomerular Filtration 67 ML/MIN Rate Random Glucose 125 MG/DL Calcium Level 8.5 MG/DL Imaging Remarks Last Impressions Knee X-Ray 10/06/16 0702 Signed Impressions: Service Date/Time: Thursday, October 06, 2016 11:37 - CONCLUSION: Status post total knee arthroplasty. Arthur Hilton MD Physical Exam General General Appearance: Well Developed, No Acute Distress, Comfortable, Obese Eyes Eye Exam: Pupils Equal, Pupils Reactive Ears & Nose Ears & Nose Exam: Nasal Mucosa [place] Throat Throat Exam: Oral Mucosa [place] & Moist Neck Neck Exam: Neck Supple, Trachea Midline Pulmonary Resp Exam: Clear Bilaterally Cardiology CV Exam: Regular, Good Perfusion, Murmur Gastrointestinal/Abdomen GI Exam: Soft, Non-Tender, Bowel Sounds Present, Positive Bowel Movement, Non- Distended Musculoskeletal MS Exam: Joints Intact Integumentary Skin Exam: Warm, Dry Extremeties Extremities Exam: Pedal Pulses Palpable, Trace Edema Neurologic Neuro Exam: Alert, Awake, Oriented, Speech Clear, Moving All Extremities, No Focal Deficits Psychiatric Psych Exam: Appropriate Responses VTE Prophylaxis VTE Prophylaxis Device: TEDs VTE Prophylaxis Meds: Heparin Assessment/Plan Problem List: (1) S/P total knee arthroplasty (2) OA (osteoarthritis) (3) Atrial fibrillation with RVR (4) Sleep apnea (5) Hypertension (6) Aortic stenosis Assessment/Plan -Continue with postop ortho care, surgical procedure 327 Labs reviewed hemoglobin stable at 9.1 No leukocytosis WBC count stable at 8. Blood sugar the a.m. lab 125, monitor for any further elevated blood sugars after home with PCP. - Continue Eliquis for DVT prophylaxis -Pain management per or so -Physical therapy daily for ADLs and mobility, CPM -Wound care, incision clean dry and intact -Bowel regimen, day 2 Aortic stenosis, denies any chest pain, shortness of breath. Stable. Had echocardiogram at [facility] office in May 2016. Continue with home medications, Hypotensive X one event, while having bowel movement, hospital vasovagal, no further issues seen, monitor -BP better, continue home meds History of A. fib, paroxysmal. Stable. Continuous telemetry monitoring Patient's on Eliquis Sleep apnea stable Continue use equipment from home Hypertension, medical management, monitor Continue with Eliquis for DVT prophylaxis x 2 weeks per ortho orders, then resume at full dose HH stable going to rehab tomorrow , [facility] Discussed with nurse Discussed with patient Discussed with Dr. Yousif, patient seen on his behalf Problem Qualifiers (1) S/P total knee arthroplasty: Qualified Code: Z96.652 - Status post total left knee replacement (2) OA (osteoarthritis): Qualified Code: M19.90 - Osteoarthritis, unspecified osteoarthritis type, unspecified site (3) Sleep apnea: Qualified Code: G47.30 - Sleep apnea, unspecified type (4) Hypertension: Qualified Code: I10 - Essential hypertension (5) Aortic stenosis: Qualified Code: I35.0 - Nonrheumatic aortic valve stenosis Jessica Boateng Oct 09, 2016 13:40
--- NOTE | 2016-10-16 08:40 | MD ---
cc: CLARENCE SAAVEDRA ADMISSION DATE: 10/06/2016 DISCHARGE DATE: 10/09/2016 ADMISSION DIAGNOSIS Severe degenerative osteoarthritis, left knee. DISCHARGE DIAGNOSIS Severe degenerative osteoarthritis, left knee. HISTORY OF PRESENT ILLNESS Mrs. Reyes is a 66-year-old female who presented to the [facility] for evaluation by Dr. Clarence Saavedra regarding her severe and progressive left knee pain. The patient states the pain is aggravated with weightbearing activities and has been bothering her for greater than one year duration for which she has received treatment for this ailment. She notes she has no alleviating factors at this in point time, although in the past she has tried medications, bracing, assistive ambulation devices, physical therapy, home exercise program, weight loss attempts and even corticosteroid injections without relief. The patient does have x-ray evidence of severe degenerative osteoarthritis of the left knee. While in the office the patient was counseled on her diagnosis and treatment options. The risks, benefits and indications were discussed. The patient did elect proceed with surgical intervention to include a left total knee arthroplasty. DATE OF SURGERY 10/06/2016 PROCEDURE PERFORMED Left total knee arthroplasty. POSTOP After surgery the patient was admitted to [facility] where she received appropriate medical management, pain control, DVT prophylaxis as well as physical therapy. DISCHARGE Once being discharged from the hospital the patient is cleared to go to a intermediate facility. She is in stable condition. DISCHARGE INSTRUCTIONS She may weight-bear as tolerated. The patient is to receive daily dressing changes and has been instructed on proper wound care management. DISCHARGE MEDICATIONS She has been provided prescriptions for pain control as well as DVT prophylaxis medication. FOLLOWUP She has been provided a follow-up appointment to see Dr. Clarence Saavedra in the office approximately two weeks from the date of surgery. The patient has asked appropriate questions which have been answered. The patient is cleared for discharge. Dictated by: Remi Mckeon PA-C Clarence Saavedra MD JWM/SSB /7:57 AM /8:39 AM
--- NOTE | 2016-10-21 14:24 | MD ---
cc: CLARENCE MCKEON ADMISSION DATE: 10/06/2016 DISCHARGE DATE: 10/09/2016 ADMITTING DIAGNOSIS Severe degenerative osteoarthritis, left knee. DISCHARGE DIAGNOSIS Severe degenerative osteoarthritis, left knee. HISTORY OF PRESENT ILLNESS Ms. Reyes is a 66-year-old female who presented to the [facility] for evaluation by Dr. Clarence Hill regarding her severe and progressive left knee pain. The patient states the pain has been progressive for several years and is currently inhibiting her activities of daily living. She states she has no significant alleviating factors at this point in time, although in the past she has tried medications, bracing, physical therapy, home exercise program, weight loss attempts and even injections without relief of symptoms. She does have x-ray evidence of severe degenerative osteoarthritis of the left knee. While in the office the patient was counseled on her diagnosis and treatment options. The risks, benefits and indications were all discussed in great detail. The patient did elect to proceed with surgical intervention to include a left total knee arthroplasty. Date of surgery 10/06/2016, left total knee arthroplasty. POST-OP After surgery the patient was admitted to [facility] where she received appropriate medical management, pain control, DVT prophylaxis as well as physical therapy. Once being discharged from the hospital the patient has been cleared to go to a nursing home facility. She is in stable condition. She can weight bear as tolerated. She has received daily dressing changes and has been instructed on appropriate wound care management. She has been provided prescriptions for pain control as well as DVT prophylaxis medication. She has also been provided a follow-up appointment to see Dr. Clarence Hill in the office in approximately two weeks from the date of surgery. The patient has asked appropriate questions which have all been answered. The patient has been discharged. Dictated by: Clarence Mckeon PA-C MD MANOJ Sams/HANS /8:39 AM /2:22 PM
== END 2016-10-09 15:09 | DRG 470 ==
LOC: HSDI 10-06 05:43 → N06B 10-06 12:31
PROVIDERS: ADMIT Orthopaedic Surgery Sports Medicine; ATTEND Orthopaedic Surgery Sports Medicine
PROC: 0SRD0JZ Replacement of Left Knee Joint with Synthetic Substitute, Open Approach (ICD-10-PCS; principal; 2016-10-06 08:28)
DX: M17.12 Unilateral primary osteoarthritis, left knee (principal); I48.0 Paroxysmal atrial fibrillation; Z68.42 Body mass index [BMI] 45.0-49.9, adult; I10 Essential (primary) hypertension; E78.5 Hyperlipidemia, unspecified; I35.0 Nonrheumatic aortic (valve) stenosis; E66.9 Obesity, unspecified; G47.30 Sleep apnea, unspecified; K59.00 Constipation, unspecified; Z79.01 Long term (current) use of anticoagulants
CPT/HCPCS: 73560; 80048; 85027; 86850; 86900; 86901; 94150; C1776; C9290; J0690; J1100; J1580; J2175; J2250; J2405; J3370; J7030; J7050; J7120; L1830

== ENCOUNTER → 2016-09-19 | Outpatient (CLI) | payer MEDICARE, OTHER ==
[~2016-09-19] MED LIST: APIX2.5T PO; APIX5TAB PO; BIOT50005 PO; COLLCAP PO; COMMODE 3-IN-11 MIS; COQ-100C2 PO; CPMMACHINE; DIOV80TA2 PO; HYDR-3288 PO; MULT400T PO; WALKER WHEELS/F1 MIS
[2016-09-19 09:55] LABS: AUTOMATED NEUTROPHIL # 3.2 TH/MM3 (1.8-7.7); BASOPHIL # 0.1 TH/MM3 (0-0.2); EOSINOPHIL # 0.2 TH/MM3 (0-0.4); HEMATOCRIT 38.8 % (35.0-46.0); HEMO FLAGS DIFF FINAL; LYMPH % 37.9 % (9.0-44.0); LYMPHOCYTE # 2.4 TH/MM3 (1.0-4.8); MEAN CELL VOLUME 93.6 FL (80.0-100.0); MEAN CORPUSCULAR HEMOGLOBIN 32.1 PG (27.0-34.0); MEAN CORPUSCULAR HGB CONC 34.3 % (32.0-36.0); MONO % 7.8 % (0.0-8.0); NEUT % 50.3 % (16.0-70.0); PLATELET COUNT 195 TH/MM3 (150-450); RED BLOOD COUNT 4.15 MIL/MM3 (4.00-5.30); RED CELL DISTRIBUTION WIDTH 13.1 % (11.6-17.2); WHITE BLOOD COUNT 6.3 TH/MM3 (4.0-11.0)
[2016-09-19 10:06] LABS: APTT (PATIENT) 27.9 SEC (24.3-30.1); INTERNATIONAL NORMALIZED RATIO 1.1 RATIO; PROTHROMBIN TIME - PATIENT 12.1 SEC (9.8-11.6)
[2016-09-19 10:12] LABS: BACTERIA, URINE MOD /hpf; BLOOD, URINE TRACE (NEG); COMMENT (UR) CULTURE INDICATED; CULTURE IF INDICATED CULTURE INDICATED; GLUCOSE,URINE NEG (NEG); KETONE, URINE NEG (NEG); MUCUS URINE FEW /lpf (OCC); NITRITE,URINE NEG (NEG); SQUAMOUS EPITHELIAL CELL URINE 16 /hpf (0-5); TRANSITIONAL EPI CELLS, URINE 1 /hpf; URINE COLOR YELLOW (YELLW/STRAW)
[2016-09-19 10:18] LABS: ALKALINE PHOSPHATASE 64 U/L (45-117); ALT (GPT) 33 U/L (10-53); ANION GAP 10 MEQ/L (5-15); AST (GOT) 20 U/L (15-37); BICARBONATE 28.2 MEQ/L (21.0-32.0); BLOOD UREA NITROGEN 14 MG/DL (7-18); CHLORIDE 102 MEQ/L (98-107); GLOMERULAR FILTRATION RATE 41 ML/MIN (>89); GLUCOSE,FASTING 109 MG/DL (74-99); POTASSIUM 3.7 MEQ/L (3.5-5.1); SODIUM (NA) 140 MEQ/L (136-145); TOTAL BILIRUBIN ADULT 0.9 MG/DL (0.2-1.0); WESTERGREN SEDIMENTATION RATE 18 mm/hr (0-30)
--- NOTE | 2016-09-19 12:05 | RADRPT ---
EXAM DATE/TIME: 09/19/2016 11:43 [facility] COMPARISON: CHEST SINGLE AP, January 14, 2016, 12:57. CHEST SINGLE AP, April 22, 2016, 2:39. INDICATIONS : Evaluate for pneumonia, pneumothorax and communicable diseases. Pre-op knee surgery. MEDICAL HISTORY : None. SURGICAL HISTORY : None. ENCOUNTER: Initial ACUITY: 1 day PAIN SCORE: 0/10 LOCATION: chest FINDINGS: Tiny angular lucency seen laterally the right lung base suggesting a tiny loculated pneumothorax. If this is a real finding, etiology uncertain. No pneumonia. No pleural effusion or pneumothorax. Heart size stable, within normal limits. CONCLUSION: Study suggests a tiny loculated pneumothorax laterally at the right lung base. Noncontrast chest CT r ecommended. Garrick Matamoros MD on September 19, 2016 at 12:01 Board Certified Radiologist. This report was verified electronically.
== END ==
LOC: CPRE 09:05
PROVIDERS: ATTEND Orthopaedic Surgery Sports Medicine
DX: Z01.812 Encounter for preprocedural laboratory examination (principal); M17.12 Unilateral primary osteoarthritis, left knee; R82.90 Unspecified abnormal findings in urine
CPT/HCPCS: 36415; 71020; 80053; 81001; 85025; 85610; 85652; 85730; 87086